=== PATIENT | female | born 1990 | race Caucasian/White ===

== ENCOUNTER 2020-03-15 04:28 | Inpatient (IN) | payer BC, OTHER ==
[2020-03-15 05:01] VITALS: BMI 25.2
[2020-03-15] MEDS ORDERED: HYDROcodone/Acetaminophen 5/325 mg Tablet PO PRN (05:03)
[2020-03-15] MEDS ORDERED: NS / Oxytocin 40 units/1000ml 1,000 ML IV PRN (05:03)
[2020-03-15] MEDS ORDERED: Butorphanol Tartrate 1 MG/ML VIAL SLOW IVP PRN (05:03)
[2020-03-15] MEDS ORDERED: Diphenoxylate HCl/Atropine Tablet PO PRN ×2 (05:03)
[2020-03-15] MEDS ORDERED: Promethazine HCl 25 MG/ML VIAL IM PRN (05:03)
[2020-03-15] MEDS ORDERED: Misoprostol 200 MCG TAB PR PRN (05:03)
[2020-03-15] MEDS ORDERED: Carboprost 250 MCG/ML AMP IM PRN (05:03)
[2020-03-15] MEDS ORDERED: Lidocaine 1% (PF) 30 ML VIAL SC PRN (05:03)
[2020-03-15] MEDS ORDERED: hydrALAZINE 20 MG/ML VIAL SLOW IVP PRN ×2 (05:03→12:52)
[2020-03-15] MEDS ORDERED: Acetaminophen 500 MG TAB PO PRN (05:03)
[2020-03-15] MEDS ORDERED: Ondansetron PF 4 MG/2 ML Vial IVP PRN (05:03)
[2020-03-15] MEDS ORDERED: Ibuprofen 800 MG TAB PO PRN (05:03)
[2020-03-15] MEDS ORDERED: NS w/ Oxytocin 10 units 500 ML IV SCH (05:15)
[2020-03-15 05:29] LABS: Hemoglobin 11.7 g/dL (12.0-16.0); Mean Corpuscular HGB CONC 33.2 g/dL (32.0-36.0); Mean Corpuscular Hemoglobin 30.7 pg (27.0-31.0); Mean Corpuscular Volume 92.6 fL (78.0-98.0); Platelet Count 208 thou/uL (130-400); RBC Distribution Width 12.3 % (11.5-14.5); White Blood Cell (WBC) Count 12.9 thou/uL (4.8-10.8)
[2020-03-15] MEDS ORDERED: Fentanyl 4 mcg/Bup 0.1% Cadd 100 ML ONE (05:32)
[2020-03-15 06:11] LABS: HBSAg Index 0.13 S/CO (0-0.99); Hep B Surf Ag Non-Reactive S/CO (NonReactive); Syphilis Antibody Nonreactive (Nonreactive); Syphilis Antibody Index 0.03 S/CO (<1.00 Non-Reactive)
[2020-03-15] MEDS: Lactated Ringer's 1,000 ML IV SCH ×2 (06:26→07:40)
[2020-03-15] MEDS ORDERED: Fentanyl 100 MCG/2 ML VIAL ONE (08:40)
[2020-03-15 11:44] LABS: SARS-CoV-2 MS2 Positive; SARS-CoV-2 N Gene Negative; SARS-CoV-2 S Gene Negative; SARS-CoV-2 by NAA Not Detected (NotDetected); SARS-CoV-2 orf1ab Negative
[2020-03-15] MEDS ORDERED: Bupivacaine/Epinephrine 0.25% 30 ML VIAL ONE (12:17)
[2020-03-15] MEDS: NS / Oxytocin 40 units/1000ml 1,000 ML IV SCH ×2 (12:28→15:04)
--- NOTE | 2020-03-15 12:51 | PDOC.OPDEL ---
OB Operative/Delivery Note Delivery Dr/Surgeon: Kike Pre-Delivery Diagnosis: active labor Procedure/Post Delivery Dx: spontaneous vaginal delivery Weeks gestation: 39 Anesthesia: epidural - Findings A Sex: female Weight: 7 lb 9 oz - 1 min: 8 - 5 min: 9 - Additional Findings/Plan Placenta delivered: spontaneous Repaired Obstetrical Laceration: 2nd degree Estimated blood loss: 150ml Post delivery plan: routine recovery
[2020-03-15] MEDS ORDERED: Bisacodyl 10 MG SUPP PR PRN (12:52)
[2020-03-15] MEDS ORDERED: Adacel (T-DAP) 0.5 ML SYRINGE IM ONE (12:52)
[2020-03-15] MEDS ORDERED: Milk Of Magnesia 30 ML UDCUP PO PRN (12:52)
[2020-03-15] MEDS ORDERED: Preparation H Ointment 28 GM TUBE PR PRN (12:52)
[2020-03-15] MEDS ORDERED: Lanolin Ointment 7 GM TUBE TOP PRN (12:52)
[2020-03-15] MEDS ORDERED: diphenhydrAMINE 25 MG CAP PO PRN (12:52)
[2020-03-15] MEDS: Ibuprofen 800 MG TAB PO SCH ×2 (14:16→20:48)
[2020-03-15] MEDS: Ferrous Sulfate 325 MG TAB PO SCH (17:27)
[2020-03-15] MEDS: Docusate Calcium (SURFAK) 240 MG CAP PO SCH (20:47)
[2020-03-15] MEDS: traMADol HCl 50 MG TAB PO PRN (20:48)
[2020-03-16] MEDS: Ibuprofen 800 MG TAB PO SCH ×3 (05:07→21:34)
[2020-03-16] MEDS: Docusate Calcium (SURFAK) 240 MG CAP PO SCH ×2 (09:01→21:34)
[2020-03-16] MEDS: Prenatal Vitamin 1 TAB PO SCH (09:01)
[2020-03-16] MEDS: Ferrous Sulfate 325 MG TAB PO SCH ×2 (09:02→16:17)
[2020-03-16] MEDS: traMADol HCl 50 MG TAB PO PRN ×2 (13:07→21:34)
[2020-03-17] MEDS: Ibuprofen 800 MG TAB PO SCH (06:17)
[2020-03-17] MEDS: traMADol HCl 50 MG TAB PO PRN ×2 (06:22→12:37)
--- NOTE | 2020-03-17 07:46 | PDOC.PP ---
Post Progress Note Post Day #: 2 Subjective: Baby feeding well. ready to go home. Weight Weight 166 lb - Physical Examination Abdominal: lochia, no distention, appropriately TTP Extremities: negative homans (B) Result Diagrams: 03/15/20 05:20 Additional Labs: Post Labs Blood Type A POSITIVE 03/15/20 06:45 Hep Bs Antigen Non-Reactive S/CO (NonReactive) 03/15/20 05:20 - Assessment/Plan Post day 2. Doing well. Discharge home. F/u in 6 weeks.
[2020-03-17] MEDS: Ferrous Sulfate 325 MG TAB PO SCH (08:48)
[2020-03-17] MEDS: Prenatal Vitamin 1 TAB PO SCH (08:52)
[2020-03-17] MEDS: Docusate Calcium (SURFAK) 240 MG CAP PO SCH (08:52)
[2020-03-17 09:04] VITALS: BP 117/71; TEMP 99
== END 2020-03-17 13:45 | disposition home or self-care (01) | DRG 807 ==
LOC: L&D/OP 04:28 → L&D 09:33 → 3SW 16:39
PROVIDERS: ADMIT Obstetrics & Gynecology; ATTEND Obstetrics & Gynecology
PROC: 10E0XZZ Delivery of Products of Conception, External Approach (ICD-10-PCS; principal; 2020-03-15)
PROC: 0KQM0ZZ Repair Perineum Muscle, Open Approach (ICD-10-PCS; 2020-03-15)
DX: O70.1 Second degree perineal laceration during delivery (principal); Z37.0 Single live birth; Z3A.39 39 weeks gestation of pregnancy; Z20.828 Contact with and (suspected) exposure to other viral communicable diseases
CPT/HCPCS: 36415; 51702; 85027; 86780; 86850; 86900; 86901; 87340; 87635; 99285; J2405; J2590; J3010; U0003